=== PATIENT | male | born 1975 | race Caucasian/White ===

== ENCOUNTER 2022-11-06 13:38 | Emergency (ER) | payer OTHER ==
[~2022-11-06] VITALS: Ht 182.8 cm; Wt 181.4 kg
[2022-11-06] MEDS ORDERED: 8 HOUR PAIN RE650 M1 PO (17:17)
[2022-11-06] MEDS ORDERED: IBU600 M1 PO (17:17)
== END 2022-11-06 17:27 | disposition home or self-care (01) ==
LOC: ED 13:38
DX: S01.81XA Laceration without foreign body of other part of head, initial encounter (principal); W33.02XA Accidental discharge of hunting rifle, initial encounter; Y93.89 Activity, other specified; Y92.89 Other specified places as the place of occurrence of the external cause; Y99.8 Other external cause status